=== PATIENT | male | born 1985 | race Caucasian/White ===

== ENCOUNTER → 2017-12-23 | Outpatient (CLI) | payer BC ==
[2017-12-23] VITALS (11 sets, daily range): BP systolic 115–150; BP diastolic 76–91; PULSE 61–72
[~2017-12-23] VITALS: Ht 193 cm; Wt 118.5 kg
[2017-12-23 13:09] LABS: PROTHROMBIN TIME 11.9 SECONDS (9.7-12.8)
== END ==
LOC: COL.RAD 12:30
PROVIDERS: Physician Assistant
DX: K75.81 Nonalcoholic steatohepatitis (NASH) (principal)